=== PATIENT | female | born 1960 | race Caucasian/White ===

== ENCOUNTER → 2021-08-14 16:43 | Outpatient (CLI) | payer OTHER, SELFPAY ==
--- NOTE | ~2021-08-14 | MM_ITS ---
EXAMINATION: MM screening [facility] BI w phil HISTORY: Screening TECHNIQUE: Craniocaudal and mediolateral oblique 3-D tomosynthesis images were obtained and synthetic 2-D images were generated. CAD analysis was submitted and interpreted. COMPARISON: Comparison to multiple prior studies sequentially, with oldest reviewed study dated 10/07. BREAST PARENCHYMAL COMPOSITION: There are scattered areas of fibroglandular density. FINDINGS: There is no evidence of suspicious mass, calcification, or architectural distortion to sugg est malignancy in either breast. There has been no suspicious interval change. IMPRESSION: 1. No mammographic evidence of malignancy. 2. Recommend routine screening mammography in one year. BI-RADS Category 1: Negative Reviewed, dictated and finalized at location [facility].
== END ==
PROVIDERS: PCP Family Medicine Adolescent Medicine; Visit Provider Family Medicine Adolescent Medicine
DX: Z12.31 Encounter for screening mammogram for malignant neoplasm of breast (principal)
CPT/HCPCS: 77063; 77067

== ENCOUNTER 2023-09-09 00:18 | Day surgery (SDC) | payer BC, SELFPAY ==
[2023-08-27 10:14] VITALS: BMI 35.1
[2023-09-09 11:31] VITALS: BP 128/82; PULSE 72; RESP 18; TEMP 36.3; O2SAT 100
[2023-09-09] MEDS: LACTATED RINGERS 1,000 ML 150 ML IV CONT (11:34)
--- NOTE | 2023-09-09 11:49 | WPDANESEPPF ---
Anes - Initial Pre Proc Eval Procedure: Operation Date: 09/09/23 13:00 Proposed Procedures p Colonoscopy - Je Mcbride MD Date/Time: 09/09/23 11:49 Surgeon: Je Mcbride MD Pre Op Diagnosis: diarrhea unspecified Patient Data Age: 63 Gender: F Height: 1.6 m Weight: 90 kg Last Vital Signs Temp 36.3 C L 09/09/23 11:31 Pulse 72 09/09/23 11:31 Resp 18 09/09/23 11:31 BP 128/82 09/09/23 11:31 Pulse Ox 100 09/09/23 11:31 O2 Del Method Room Air 09/09/23 11:31 Allergies Allergy/AdvReac Type Severity Reaction Status Date / Time No Known Allergies Allergy Unknown Verified 09/09/23 11:27 Home Medications Medication Instructions Recorded Confirmed Type pen needle, diabetic 31 gauge x #25 ea 04/16/22 08/27/23 Rx 1/4 (Comfort EZ Pen [place]) hydroxyzine HCl 25 mg tablet 25 mg PO QID PRN itching #25 tabs 05/20/22 08/27/23 Rx glycopyrrolate 2 mg tablet See Rx Instructions .Route 12/09/22 08/27/23 Rx .COMPLEX #270 tabs venlafaxine 150 mg 150 mg PO QAM #90 caps 03/06/23 08/27/23 Rx capsule,extended release 24 hr tramadol 50 mg tablet See Rx Instructions PO QID PRN 05/11/23 08/27/23 Rx pain #60 tabs hydroxychloroquine 200 mg tablet See Rx Instructions .Route 06/06/23 08/27/23 Rx .COMPLEX #180 tabs metoprolol tartrate 50 mg tablet 50 mg PO BID #180 tabs 06/07/23 08/27/23 Rx semaglutide (weight loss) 1 mg/0.5 1 mg (0.5 mL) subcut WEEKLY #2 mL 07/29/23 08/27/23 Rx mL subcutaneous pen injector (Wegovy) cholestyramine (with sugar) 4 gram 4 g PO DAILY 08/27/23 08/27/23 History oral powder (Questran) hydrochlorothiazide 25 mg tablet 25 mg PO DAILY #90 tabs 08/30/23 09/09/23 Rx lorazepam 2 mg tablet 2 mg PO QHS PRN sleep #30 tabs 08/30/23 09/09/23 Rx Patient hx anesthesia problems: none Family hx anesthesia problems: none Results Review: All pre-operative results and documents have been reviewed as part of the pre-operative evaluation. [facility] Past Medical History Medical History (Updated 09/09/23 @ 11:50 by Shoaib Lovett MD) Essential (primary) hypertension Obesity Obstructive sleep apnea (adult) (pediatric) Surgical History Surgical History (Updated 07/16/23 @ 08:51 by BILLY Severino) History of appendectomy History of bariatric surgery Lap band History of cholecystectomy 2009 History of hysterectomy History of shoulder surgery 2014, left, acromioplasty Family History Family History Father Hypertension Heart disease Malignant neoplasm of prostate Mother Diabetes mellitus Acute myocardial infarction Cerebrovascular accident Depression Heart disease Sibling Cerebrovascular accident Diabetes mellitus Heart disease Other Colon polyp Social History Social History Years smoked: 4 Smoking status: Current some day smoker Tobacco type: cigarettes Second hand tobacco smoke exposure: No Alcohol intake: current Drinks per week: 6 Substance use: never Substance use type: does not use Living arrangements: alone Occupation/Education: occupation Gender identity (if verbalized by the patient): Female Sexual Orientation (if Verbalized by the Patient): Straight or Heterosexual Spiritual care concerns: No Agree to blood products: Yes Anes - Eval Final PreProcedure Day of Procedure 09/09/23 11:49 Patient weight: obese Heart: regular rate and rhythm Lungs: clear to auscultation Airway: Mallampati scale class II Neurological: alert and oriented Last oral intake: >/= 8 hours ASA classification: III Emergent: no Anesthetic plan: proceed Anesthesia type and monitoring: general GIVS and standard monitoring Results Review: All pre-operative results and documents have been reviewed as part of the pre-operative evaluation. Informed Consent: The patient's anesthe
--- NOTE | 2023-09-09 12:02 | PM.HPGS ---
History of Present Illness History of Present Illness Consent: Risks, benefits, and alternatives have been discussed and questions answered. Patient agrees to proceed with procedure. Chief complaint: diarrhea unspecified Narrative: Rosario Klein is a 63 year old female with diarrhea for long time, last colonoscopy over 10 years ago. Started on questran and helping some Review of Systems Review of Systems: All systems reviewed & are unremarkable except as noted in HPI and below PMFSH Past Medical History Medical History (Updated 09/09/23 @ 11:50 by Shoaib Lovett MD) Essential (primary) hypertension Obesity Obstructive sleep apnea (adult) (pediatric) Surgical History Surgical History (Updated 07/16/23 @ 08:51 by BILLY Severino) History of appendectomy History of bariatric surgery Lap band History of cholecystectomy 2009 History of hysterectomy History of shoulder surgery 2014, left, acromioplasty Family History Family History Father Hypertension Heart disease Malignant neoplasm of prostate Mother Diabetes mellitus Acute myocardial infarction Cerebrovascular accident Depression Heart disease Sibling Cerebrovascular accident Diabetes mellitus Heart disease Other Colon polyp Social History Social History Years smoked: 4 Smoking status: Current some day smoker Tobacco type: cigarettes Second hand tobacco smoke exposure: No Alcohol intake: current Drinks per week: 6 Substance use: never Substance use type: does not use Living arrangements: alone Occupation/Education: occupation Gender identity (if verbalized by the patient): Female Sexual Orientation (if Verbalized by the Patient): Straight or Heterosexual Spiritual care concerns: No Agree to blood products: Yes Meds Home Medications and Allergies Home Medications Medication Instructions Recorded Confirmed Type pen needle, diabetic 31 gauge x #25 ea 04/16/22 08/27/23 Rx 1/4 (Comfort EZ Pen [place]) hydroxyzine HCl 25 mg tablet 25 mg PO QID PRN itching #25 tabs 05/20/22 08/27/23 Rx glycopyrrolate 2 mg tablet See Rx Instructions .Route 12/09/22 08/27/23 Rx .COMPLEX #270 tabs venlafaxine 150 mg 150 mg PO QAM #90 caps 03/06/23 08/27/23 Rx capsule,extended release 24 hr tramadol 50 mg tablet See Rx Instructions PO QID PRN 05/11/23 08/27/23 Rx pain #60 tabs hydroxychloroquine 200 mg tablet See Rx Instructions .Route 06/06/23 08/27/23 Rx .COMPLEX #180 tabs metoprolol tartrate 50 mg tablet 50 mg PO BID #180 tabs 06/07/23 08/27/23 Rx semaglutide (weight loss) 1 mg/0.5 1 mg (0.5 mL) subcut WEEKLY #2 mL 07/29/23 08/27/23 Rx mL subcutaneous pen injector (Maris) cholestyramine (with sugar) 4 gram 4 g PO DAILY 08/27/23 08/27/23 History oral powder (Questran) hydrochlorothiazide 25 mg tablet 25 mg PO DAILY #90 tabs 08/30/23 09/09/23 Rx lorazepam 2 mg tablet 2 mg PO QHS PRN sleep #30 tabs 08/30/23 09/09/23 Rx Allergies Allergy/AdvReac Type Severity Reaction Status Date / Time No Known Allergies Allergy Unknown Verified 09/09/23 11:27 Vital Signs Vital Signs - 24 hr 09/09/23 11:31 Temperature 97.3 F L Pulse Rate 72 Respiratory Rate 18 Blood Pressure 128/82 Pulse Oximetry 100 Oxygen Delivery Room Air Exam Const: General: comfortable and no acute distress HENMT: Face/Nose/Sinus: Normal nares present Eyes: General: appearance normal, both eyes and all related structures Neck: Neck: no JVD Resp: Auscultation: clear to auscultation bilaterally Cardio: Rate: regular rate Rhythm: regular rhythm GI: Inspection: non-distended GI Palp: Yes Soft to palpation Skin: General skin exam: normal color Neuro: General: gait normal Speech: normal speech Extrem: General: normal to inspection Psych: Mental Status: mental status grossly normal
[2023-09-09 12:22] VITALS: BP 99/54; PULSE 67; RESP 20; O2SAT 98
[2023-09-09 12:32] VITALS: BP 93/54; PULSE 71; RESP 23; O2SAT 100
[2023-09-09 12:42] VITALS: BP 120/73; PULSE 65; RESP 21; O2SAT 100
== END 2023-09-09 12:57 | disposition home or self-care (01) ==
PROVIDERS: PCP Family Medicine Adolescent Medicine; Referring Provider Nurse Practitioner Family; Visit Provider Internal Medicine Gastroenterology
PROC: 0DJD8ZZ Inspection of Lower Intestinal Tract, Via Natural or Artificial Opening Endoscopic (ICD-10-PCS; CPT 45378; principal; 2023-09-09 13:00)
DX: K58.0 Irritable bowel syndrome with diarrhea (principal); K57.30 Diverticulosis of large intestine without perforation or abscess without bleeding; D12.3 Benign neoplasm of transverse colon; D12.5 Benign neoplasm of sigmoid colon; K64.8 Other hemorrhoids; I10 Essential (primary) hypertension; G47.33 Obstructive sleep apnea (adult) (pediatric); E66.9 Obesity, unspecified; Z68.35 Body mass index [BMI] 35.0-35.9, adult; Z98.84 Bariatric surgery status; Z79.85 Long-term (current) use of injectable non-insulin antidiabetic drugs; F17.210 Nicotine dependence, cigarettes, uncomplicated; Z90.49 Acquired absence of other specified parts of digestive tract
CPT/HCPCS: 45385; 45380; 88305; J2704; J7120

== ENCOUNTER 2023-09-10 14:47 | Outpatient (CLI) | payer BC, SELFPAY ==
[2023-09-13 04:18] LABS: Immunoglobulin A 151 mg/dL (70-320); TTG IGA AB <1.0 U/mL
== END 2023-09-10 14:48 | disposition home or self-care (01) ==
LOC: ANHLAB 14:48
PROVIDERS: PCP Family Medicine Adolescent Medicine; Visit Provider Nurse Practitioner Family
DX: E66.9 Obesity, unspecified (principal)
CPT/HCPCS: 36415; 82784; 86364

== ENCOUNTER 2023-10-28 15:04 | Outpatient (CLI) | payer BC, SELFPAY ==
--- NOTE | ~2023-10-28 | MM_ITS ---
EXAMINATION: MM screening [facility] BI w phil HISTORY: Screening mammogram TECHNIQUE: Craniocaudal and mediolateral oblique 3-D tomosynthesis images were obtained and synthetic 2-D images were generated. CAD analysis was submitted and interpreted. COMPARISON: 08/14/2021, 10/15/2017 BREAST PARENCHYMAL COMPOSITION:Not Dense. There are scattered areas of fibroglandular density. FINDINGS: There is more prominent upper, outer posterior intramammary lymph node in the right breast. No suspicious mass, calcification, or architectural distortion are identified in either breast to bourgeois ggest malignancy. There has been no suspicious interval change. IMPRESSION: No mammographic evidence of malignancy. Recommend routine screening mammography in one year. BI-RADS Category 2: Benign finding(s). Reviewed, dictated and finalized at [facility].
== END 2023-10-28 15:05 | disposition home or self-care (01) ==
LOC: MICIMG 15:04
PROVIDERS: PCP Family Medicine Adolescent Medicine; Visit Provider Family Medicine Adolescent Medicine
DX: Z12.31 Encounter for screening mammogram for malignant neoplasm of breast (principal)
CPT/HCPCS: 77063; 77067

== ENCOUNTER 2024-10-31 15:55 | Outpatient (CLI) | payer BC, SELFPAY ==
--- NOTE | ~2024-10-31 | MM_ITS ---
EXAMINATION: MM screening [facility] BI w phil HISTORY: Screening TECHNIQUE: Craniocaudal and mediolateral oblique 3-D tomosynthesis images were obtained and synthetic 2-D images were generated. CAD analysis was submitted and interpreted. COMPARISON: 08/14/2021 BREAST PARENCHYMAL COMPOSITION: Not Dense: The breasts are almost entirely fatty. FINDINGS: There is no evidence of suspicious mass, calcification, or architectural distortion to suggest malignancy in either breast. [There has been no significant interval change. IMPRESSION: 1. No mammographic evidence of malignancy. Recommend routine screening mammography in one year. BI-RADS Category 1: Negative Reviewed, dictated, and finalized at [facility]. Reviewed, dictated and finalized at location [facility]. IMPRESSION: 1. No mammographic evidence of malignancy. Recommend routine screening mammogra phy in one year. BI-RADS Category 1: Negative
== END 2024-10-31 15:56 | disposition home or self-care (01) ==
LOC: MICIMG 15:55
PROVIDERS: PCP Family Medicine Adolescent Medicine; Visit Provider Family Medicine Adolescent Medicine
DX: Z12.31 Encounter for screening mammogram for malignant neoplasm of breast (principal)
CPT/HCPCS: 77063; 77067